=== PATIENT | female | born 1970 | race Caucasian/White ===

== ENCOUNTER 2022-04-18 10:44 | Emergency (ER) | payer MEDICAID ==
[~2022-04-18] VITALS: Ht 154.9 cm; Wt 67.7 kg
[2022-04-18 11:19] VITALS: BP 134/84
[2022-04-18] MEDS ORDERED: ondansetron 4mg rapidly disintigrating tab PO ONE (11:30)
== END 2022-04-18 13:26 | disposition home or self-care (01) ==
LOC: ER 10:44
DX: S09.8XXA Other specified injuries of head, initial encounter (principal); Z88.5 Allergy status to narcotic agent; Z88.6 Allergy status to analgesic agent; Z79.899 Other long term (current) drug therapy; X58.XXXA Exposure to other specified factors, initial encounter; Y93.89 Activity, other specified; Y92.89 Other specified places as the place of occurrence of the external cause; Y99.8 Other external cause status
CPT/HCPCS: 70450; 72131; 99284